=== PATIENT | male | born 1960 | race African-American/Black ===

== ENCOUNTER 2017-06-20 18:59 | Emergency (ER) | payer OTHER ==
[~2017-06-20] VITALS: Ht 180.3 cm; Wt 90.7 kg
--- NOTE | 2017-06-20 20:48 | NUR ---
PT C/O HEMATURIA X1 WEEK. ALSO C/O UNSPECIFIC "BODY PAINS"
--- NOTE | 2017-06-20 20:57 | NUR ---
Patient in bed, no acute distress noted. All patient needs attended and met.
--- NOTE | 2017-06-20 21:24 | NUR ---
ER MD AT BEDSIDE FOR PATIENT EVALUATION
--- NOTE | 2017-06-20 21:42 | NUR ---
LAB AT PT BEDSIDE
[2017-06-20 21:55] LABS: BASOPHILS # (AUTO) 0.1 K/uL (0.0-8.0); BASOPHILS % (AUTO) 1.1 % (0.0-2.0); EOSINOPHILS # (AUTO) 0.1 K/uL (0.0-0.7); EOSINOPHILS % (AUTO) 2.1 % (0.0-7.0); HEMATOCRIT 40.9 % (36.7-47.1); HEMOGLOBIN 13.5 g/dL (12.5-16.3); LYMPHOCYTES # (AUTO) 2.6 K/uL (20.0-40.0); LYMPHOCYTES % (AUTO) 40.4 % (20.5-51.5); MEAN CORPUSCULAR HEMOGLOBIN 24.2 uug (23.8-33.4); MEAN CORPUSCULAR HGB CONC 33 g/dL (32.5-36.3); MEAN CORPUSCULAR VOLUME 72.9 fL (73.0-96.2); MONOCYTES # (AUTO) 0.7 K/uL (2.0-10.0); MONOCYTES % (AUTO) 11.2 % (0.0-11.0); NEUTROPHILS # (AUTO) 2.9 K/uL (1.8-8.9); NEUTROPHILS % (AUTO) 45.2 % (38.5-71.5); PLATELET COUNT (AUTO) 181 K/uL (152-348); WHITE BLOOD COUNT (AUTO) 6.5 K/uL (3.6-10.2)
[2017-06-20 22:09] LABS: BILIRUBIN,DIRECT 0.1 mg/dL (0.0-0.2); BILIRUBIN,TOTAL 0.3 mg/dL (0.2-1.0); CREATININE 1.6 mg/dL (0.6-1.3); POTASSIUM 4.2 mmol/L (3.5-5.1); TOTAL PROTEIN, SERUM 6.9 g/dL (6.4-8.2)
--- NOTE | 2017-06-20 22:38 | NUR ---
Patient in bed, no acute distress noted. All patient needs attended and met.
--- NOTE | 2017-06-20 22:58 | NUR ---
PT OUT OF ROOM FOR CT. VSS. NO ACUTE SIDRESSS NOTED AT THIS TIME. STABLE FOR TRANSFER
[2017-06-20 23:08] LABS: *BILIRUBIN,URIN NEGATIVE (NEGATIVE); *BLOOD, URINE Trace-intact (NEGATIVE); *CLARITY,URINE CLEAR (CLEAR); *COLOR,URINE YELLOW (YELLOW); *KETONES,URINE TRACE (NEGATIVE); *PROTEIN,URINE NEGATIVE (NEGATIVE); *UROBILINOGEN,URINE 0.2 E.U./dl (NORMAL); LEUKOCYTE ESTERASE ,URINE NEGATIVE (NEGATIVE); NITRITE, URINE NEGATIVE (NEGATIVE); PH,URINE 7.5 (5.0-8.0); UGLUCOSE NEGATIVE (NEGATIVE)
[2017-06-20 23:16] LABS: BACTERIA,URINE NONE SEEN /HPF (NONE SEEN); RBC,URINE 0-3 /HPF (0-3); WBC,URINE 0-3 /HPF (0-3)
[2017-06-20 23:17] LABS: SQUAMOUS EPITHELIAL CELL,UR FEW /HPF (NONE SEEN)
--- NOTE | 2017-06-20 23:17 | NUR ---
PT BACK IN ROOM FROM CT
--- NOTE | 2017-06-20 23:18 | NUR ---
VSS. NO ACUTE DISTRESS NOTED AT THIS TIME.
--- NOTE | 2017-06-21 00:07 | NUR ---
Patient discharged to home in stable conditon. Written and verbal after care instructions given. Patient verbalizes understanding of instructions. ALL BELONGGENIE Grossman PT
--- NOTE | 2017-06-21 00:08 | NUR ---
PT AMBULATED FROM ER W/ STEADY GAIT.
[2017-06-21 00:12] VITALS: BP 105/60
== END 2017-06-21 00:14 | disposition home or self-care (01) ==
LOC: ER 18:59
DX: R31.9 Hematuria, unspecified (principal); N40.0 Benign prostatic hyperplasia without lower urinary tract symptoms; N20.1 Calculus of ureter; Z88.8 Allergy status to other drugs, medicaments and biological substances
CPT/HCPCS: 36415; 83605; 83690; 85025; 87040; 87086; A4663

== ENCOUNTER 2017-08-23 09:33 | Emergency (ER) | payer OTHER ==
[~2017-08-23] VITALS: Ht 180.3 cm; Wt 93.0 kg
--- NOTE | 2017-08-23 09:51 | NUR ---
PT WAS EVALUATED BY DR FARNSWORTH. PT WAS D/C TO HOME. D/C INSTRUCTIONS GIVEN TO THE PT.
[2017-08-23 10:03] VITALS: BP 136/77
== END 2017-08-23 10:07 | disposition home or self-care (01) ==
LOC: ER 09:33
DX: L03.311 Cellulitis of abdominal wall (principal); Z88.8 Allergy status to other drugs, medicaments and biological substances
CPT/HCPCS: A4663